=== PATIENT | male | born 1990 | race Asian ===

== ENCOUNTER 2024-01-27 14:55 | Emergency (ER) | payer OTHER ==
[~2024-01-27] VITALS: Ht 172.7 cm; Wt 74.8 kg
[2024-01-27] MEDS: IV NS 0.9% 1,000 ML BAG IV ONE (16:30)
[2024-01-27] MEDS: ONDANSETRON HCL/PF 4 MG/2 ML VIAL IVP ONE (16:30)
[2024-01-27] MEDS: FAMOTIDINE/PF INJ 20 MG/2 ML VIAL IV ONE (16:30)
[2024-01-27] MEDS ORDERED: ONDANSETRON HCL/PF 4 MG/2 ML VIAL ONE (16:55)
[2024-01-27] MEDS ORDERED: FAMOTIDINE/PF INJ 20 MG/2 ML VIAL IV ONE (16:56)
[2024-01-27] MEDS ORDERED: ACETAMINOPHEN ES 500 MG TABLET ONE (16:56)
[2024-01-27 17:03] LABS: BASOPHILS % (AUTO) 0.3 % (0.0-2.0); HEMATOCRIT 36 % (39-51); HEMOGLOBIN 11.7 g/dL (13.5-17.5); LYMPHOCYTES # (AUTO) 0.5 K/uL (0.8-4.8); LYMPHOCYTES % (AUTO) 7.1 % (20.0-44.0); MEAN CORPUSCULAR HEMOGLOBIN 21 PG (26.0-33.0); MEAN CORPUSCULAR HGB CONC 32 g/dl (31.0-36.0); MEAN CORPUSCULAR VOLUME 64 fL (80-96); MONOCYTES # (AUTO) 0.4 K/uL (0.1-1.30); MONOCYTES % (AUTO) 6.2 % (2.0-12.0); NEUTROPHILS # (AUTO) 6.1 K/uL (1.8-8.9); NEUTROPHILS % (AUTO) 86.4 % (43.0-81.0); PLATELET COUNT (AUTO) 93 K/uL (150-450); RED BLOOD CELL COUNT(AUTO) 5.65 MIL/uL (4.5-6.0); WHITE BLOOD COUNT (AUTO) 7.1 K/uL (4.3-11.0)
[2024-01-27] MEDS: ACETAMINOPHEN ES 500 MG TABLET PO ONE (17:16)
[2024-01-27 17:23] LABS: ALBUMIN 3.5 g/dL (3.4-5.0); BILIRUBIN,DIRECT 0.2 mg/dL (0.0-0.2); BILIRUBIN,TOTAL 0.7 mg/dL (0.2-1.0); CALCIUM, SERUM 9.2 mg/dL (8.5-10.1); POTASSIUM 3.7 mmol/L (3.5-5.1); TOTAL PROTEIN, SERUM 7.1 g/dL (6.4-8.2)
[2024-01-27 17:48] LABS: LYMPHOCYTES % (MANUAL) 6 % (16-48); MONOCYTES % (MANUAL) 4 % (0-11.0); NEUTROPHILS % (MANUAL) 90 (42-76); PLATELET ESTIMATE DECREASED
[2024-01-27 17:49] LABS: ANISOCYTOSIS 1+
[2024-01-27] MEDS ORDERED: ONDA4TAB5 PO (17:49)
[2024-01-27 18:20] VITALS: BP 122/66; TEMP 100.1; O2SAT 100
== END 2024-01-27 18:20 | disposition home or self-care (01) ==
LOC: ER 14:59
DX: R11.0 Nausea (principal)
CPT/HCPCS: 99284; 96374; 96361; 96375; 85025; 80048; 83690; 80076; 36415; 85007; J3490; J2405; J7030